=== PATIENT | male | born 1985 | race Caucasian/White ===

== ENCOUNTER → 2019-01-01 | Day surgery (SDC) | payer BC ==
[~2019-01-01] MED LIST: FENTANYL CITRATE/PF 100MCG/2 ML INJ ONE; MIDAZOLAM HCL 2 MG/2 ML VIAL ONE
--- OUTSIDE RECORDS SUMMARY | 2019-01-01 06:36 | XMS REPORT | Continuity of Care Document ---
Author Author [email or web address] Address Unknown Phone Unavailable Care Team Providers Care Photoengraving Proofer Name Role Phone [facility] Information [employer] Unavailable Unavailable Problems Problem Status Onset Date Classification Date Reported Comments Source Ketonuria 03/16/2018 Diagnosis 03/16/2018 [facility] Urgent desire to urinate 03/16/2018 Diagnosis 03/16/2018 [facility] Increased frequency of urination 03/16/2018 Diagnosis 03/16/2018 [facility] On examination - pulse rate tachycardia 03/16/2018 Diagnosis 03/16/2018 [facility] Medications Medication Details Route Status Patient Instructions Ordering Provider Order Date Source Ciprofloxacin 500 MG Oral Tablet [Cipro] Cipro 500 mg tablet Take 1 tablet every 12 hours by oral route for 5 days. Active [facility] Allergies, Adverse Reactions, Alerts No Known Medication Allergies Immunizations No Data Provided for This Section Results Order Name Results Value Reference Range Date Interpretation Comments Source Urinalysis macro (dipstick) panel - Urine COLOR : Yellow 03/16/2018 [facility] Urinalysis macro (dipstick) panel - Urine CLARITY : Clear 03/16/2018 [facility] Urinalysis macro (dipstick) panel - Urine LEUKOCYTES : Negative 03/16/2018 [facility] Urinalysis macro (dipstick) panel - Urine NITRITES : Negative 03/16/2018 [facility] Urinalysis macro (dipstick) panel - Urine UROBILINOGEN : Normal 03/16/2018 [facility] Urinalysis macro (dipstick) panel - Urine PROTEIN : Negative 03/16/2018 [facility] Urinalysis macro (dipstick) panel - Urine pH : 5.0 03/16/2018 [facility] Urinalysis macro (dipstick) panel - Urine BLOOD : Negative 03/16/2018 [facility] Urinalysis macro (dipstick) panel - Urine SPECIFIC GRAVITY : 1.000 03/16/2018 [facility] Urinalysis macro (dipstick) panel - Urine KETONES : Large (150) 03/16/2018 [facility] Urinalysis macro (dipstick) panel - Urine BILIRUBIN : Negative 03/16/2018 [facility] Urinalysis macro (dipstick) panel - Urine GLUCOSE Negative 03/16/2018 [facility] Pathology Reports No Data Provided for This Section Diagnostic Reports No Data Provided for This Section Consultation Notes No Data Provided for This Section Discharge Summaries No Data Provided for This Section History and Physicals No Data Provided for This Section Vital Signs Vital Sign Value Date Comments Source Diastolic (mm Hg) 78 03/16/2018 [facility] Height 64 03/16/2018 [facility] Systolic (mm Hg) 120 03/16/2018 [facility] Weight 170 03/16/2018 [facility] Encounters Location Location Details Encounter Type Encounter Number Reason For Visit Attending Provider ADM Date DC Date Status Source [place] - [facility] - [id number] CevallosC: [address] [place] [address], Ph. [id number] Georgina Robertson 03/16/2018 [facility] Procedures No Data Provided for This Section Assessment and Plan No Data Provided for This Section Plan of Care No Data Provided for This Section Social History Social History Date Source Smoking Status Never Smoker 03/16/2018 [facility] Family History No Data Provided for This Section Advance Directives No Data Provided for This Section Functional Status No Data Provided for This Section
--- OUTSIDE RECORDS SUMMARY | 2019-01-01 06:36 | XMS REPORT | Encounter Summary ---
Author Organization Unknown Address [address] [place] [id number] Phone [phone] Reason for Visit Medical Complaint Instructions 1. On examination - pulse rate tachycardia 2. Increased frequency of urination urinalysis, dipstick frequent urination: care instructions culture, urine CT + NG RNA, PCR, unspecified specimen Cipro 500 mg tablet 3. Urgent desire to urinate 4. Ketonuria Discussion Note Follow up urologist for further evaluation and consultation Plan of Care Reminders Provider Appointments None recorded. Lab Urinalysis, Dipstick 03/16/2018 [facility] Culture, Urine 03/16/[address] [facility] [address] + NG RNA, PCR, Unspecified Specimen 03/16/2018 [facility] Referral None recorded. Procedures None recorded. Surgeries None recorded. Imaging None recorded. Medications Name Start Date Cipro 500 mg tablet Take 1 tablet every 12 hours by oral route for 5 days. Medications Administered None recorded. Vitals Height Weight BMI Blood Pressure 5 ft 4 in 170 lbs 29.2 kg/m2 120/78 mm[Hg] Lab Results Date Name Specimen Result Interpretation Description Value Range Status Address 03/16/2018 Urinalysis, Dipstick Color : Yellow [facility]: [address] [place] [address] Clarity : Clear [facility]: [address] [place] [address] Leukocytes : Negative [facility]: [address] [place] [address] Nitrites : Negative [facility]: [address] [place] [address] Urobilinogen : Normal [facility]: [address] [place] [address] Protein : Negative [facility]: [address] [place] [address] Ph : 5.0 [facility]: [address] [place] [address] Blood : Negative [facility]: [address] [place] [address] Specific Wylie : 1.000 [facility]: [address] [place] [address] Ketones : Large (150) [facility]: [address] [place] [address] Bilirubin : Negative [facility]: [address] [place] [address] Glucose Negative [facility]: [address] [place] [address] Allergies Code Code System Name Reaction Severity Status Onset NKDA Problems No Known Problems Procedures None recorded. Vaccine List None recorded. Social History Smoking Status Never Smoker Past Encounters 03/16/2018 On Examination - Pulse Rate Tachycardia; Increased Frequency of Urination; Urgent Desire to Urinate; Ketonuria Georgina Robertson PA-C: [address] [place] [address], Ph. History of Present Illness [id number]-[id number]-Yeqxyev-Hernia Reported By: Patient HPI: Location: penis, scrotum. Quality: pressure. Severity: mild. Duration: intermittent. Onset/Timing: sudden. Context: no known exposure to STD, sexually active, prior history of STDs, heterosexual, vaginal intercourse. Modifying factors OTC medication. Associated Symptoms: no muscle aches, no fever/chills, no headache, no penile lesions/sores, no scrotal lesions/sores, no penile discharge, no flank pain, no jaundice, no blood in the urine, no pain during urination, urgency, urinary frequency, incontinence, abdominal pain Review of Systems Basic Reported By: Patient Constitutional: Constitutional: no fever Eyes: Eyes: no eye complaints Rxqj-Karj-Jbmmk-Throat: Ears: no ear complaints. Nose: no nose/sinus problems. Mouth/Throat: no sore throat, no bleeding gums, no mouth complaints, no teeth problems Cardiovascular: Cardiovascular: no chest pain, no shortness of breath, no known heart murmur Respiratory: Respiratory: no cough, no wheezing, no shortness of breath Gastrointestinal: Gastrointestinal: no abdominal pain, no vomiting / diarrhea Genitourinary: Genitourinary: no urinary complaints, no discharge, urinary urgency; stream is steady Musculoskeletal: Musculoskeletal: no muscle aches, no muscle weakness, no arthralgias/joint pain, no back pain Skin: Skin: no abnormal / changing mole, no jaundice, no rashes Neurologic: Neurologic: no loss of consciousness, no weakness, no numbness, no seizures, no dizziness, no headaches Physical Exam Adult Male Complete Reported By: Patient Constitutional: General Appearance: healthy-appearing, well-nourished, well-developed. Level of Distress: NAD. Ambulation: ambulating normally Psychiatric: Mental Status: active and alert. Orientation: to time, to place, to person Lungs: Respiratory effort: no dyspnea. Auscultation: breath sounds normal, good air movement Cardiovascular: Heart Auscultation: RRR, no murmurs. Pulses including femoral / pedal: normal throughout Abdomen: Bowel Sounds: normal. Inspection and Palpation: soft, no tenderness, no guarding, no rebound tenderness, no masses, no CVA tenderness. Hernia: none palpable Male : Penis: no lesions, no discharge, circumcised. Scrotum: no swelling, no tenderness. Testes: palpable bilaterally, not enlarged Skin: Inspection and palpation: no rash, no lesions, no ulcer, no induration, no nodules, good turgor, no jaundice. Nails: normal
[2019-01-01 10:40] VITALS: BP 106/68
--- NOTE | 2019-01-01 12:59 | Operative Report ---
DATE OF PROCEDURE: 01/01/2019 SURGEON: Roddy Levin MD PROCEDURE: Esophagogastroduodenoscopy with biopsies. INDICATIONS FOR EGD: Upper abdominal pain, bloating. MEDICATION: The patient was done under MAC, please see anesthesiologist's note. PROCEDURE IN DETAIL: With the patient in left lateral decubitus position, flexible fiberoptic Olympus gastroscope was introduced into the esophagus under direct visualization without any difficulty. An approximately 3 mm polypoid lesion was noted just below the upper esophageal sphincter suspicious for a squamous papilloma and that was biopsied. The scope was then advanced with ease into the distal esophagus and there was some patchy erythema noted in the distal esophagus. The scope was then advanced with ease into the stomach and mucosa overlying the antrum and the body revealed some patchy intense erythema and moderate edema and biopsies were obtained and sent to stain for H pylori. A minute hyperplastic-appearing polyp was noted in the proximal body of the stomach and that was partially excised with the cold biopsy forceps. Pylorus was of normal contour and shape, it was intubated with ease and the scope was advanced all the way to the second portion of the duodenum. Biopsies were obtained from the second portion and the duodenal bulb to rule out sprue. An approximately 5 mm submucosal nodule was noted in the distal bulb and that was biopsied. The scope was then withdrawn back into the stomach and retroflexed and mucosa overlying the fundus and the cardia appeared to be within normal limits. The scope was then straightened out, it was subsequently withdrawn. The patient tolerated procedure well. IMPRESSION: 1. Rule out squamous papilloma, just below upper esophageal sphincter, biopsied. 2. Distal esophagitis. 3. Gastritis, biopsied, biopsies sent to stain for H pylori. 4. Gastric polyp, hyperplastic appearing, upper body, partially excised with the cold biopsy forceps. 5. Approximately 5 mm submucosal nodule, distal bulb, biopsied. 6. Rule out sprue. PLAN: Follow up histology. Initiate Protonix 40 mg one p.o. q.a.m. a.c. If biopsies of the cervical esophageal lesion sock turner to be positive for squamous papilloma, we will need to refer patient to an ENT for total excision. Roddy Levin MD [facility] [place] /[id number] cc: Yusuf Clay MD
== END | disposition home or self-care (01) ==
LOC: OR 06:34
PROVIDERS: ATTEND Internal Medicine Gastroenterology
DX: K29.70 Gastritis, unspecified, without bleeding (principal); D13.0 Benign neoplasm of esophagus; K31.7 Polyp of stomach and duodenum; K21.9 Gastro-esophageal reflux disease without esophagitis; K20.9 Esophagitis, unspecified; K31.89 Other diseases of stomach and duodenum; J45.909 Unspecified asthma, uncomplicated; R03.0 Elevated blood-pressure reading, without diagnosis of hypertension; Z68.30 Body mass index [BMI] 30.0-30.9, adult; Z80.0 Family history of malignant neoplasm of digestive organs
CPT/HCPCS: 43239; J2250; J3010